=== PATIENT | female | born 1955 | race Caucasian/White ===

== ENCOUNTER → 2017-08-13 | Outpatient (CLI) | payer OTHER ==
--- NOTE | 2017-08-13 15:49 | RAD ---
DATE: 08/13/2017 EXAM: DIGITAL SCREEN BILAT W/CAD HISTORY: Screening COMPARISON: One year earlier This study was interpreted with the benefit of Computerized Aided Detection (CAD). FINDINGS: Breast Density: SCATTERED The breast parenchyma shows scattered fibroglandular densities. Breast parenchyma level B. There has been little change in the appearance of the breasts compared to the previous exam IMPRESSION: Benign findings BI-RADS CATEGORY: 2 BENIGN FINDING(S) RECOMMENDED FOLLOW-UP: 12M 12 MONTH FOLLOW-UP PQRS compliance statement: Patient information was entered into a reminder system with a target due date 08/13/2018 for the next mammogram. Mammography is a sensitive method for finding small breast cancers, but it does not detect them all and is not a substitute for careful clinical examination. A negative mammogram does not negate a clinically suspicious finding and should not result in delay in biopsying a clinically suspicious abnormality. "Our facility is accredited by the [employer] Mammography [employer]."
== END | disposition home or self-care (01) ==
LOC: MAMMO 14:38
PROVIDERS: ATTEND Internal Medicine
DX: Z12.31 Encounter for screening mammogram for malignant neoplasm of breast (principal)
CPT/HCPCS: G0202; 77067

== ENCOUNTER → 2018-08-14 | Outpatient (CLI) | payer MEDICARE, OTHER ==
--- NOTE | 2018-08-15 13:20 | RAD ---
DATE: 08/14/2018 EXAM: MAMMO MARISOL SCREENING BILATERAL HISTORY: Routine screening COMPARISON: 08/13/2017 This study was interpreted with the benefit of Computerized Aided Detection (CAD). Breast Density: SCATTERED The breast parenchyma shows scattered fibroglandular densities. Breast parenchyma level B. FINDINGS: 2-D and 3-D tomosynthesis imaging was performed in CC and MLO projections. No new or enlarging breast densities are seen. Scattered benign type calcifications are present. No suspicious microcalcifications have developed. IMPRESSION: Stable mammograms without evidence of malignancy. BI-RADS CATEGORY: 2 BENIGN FINDING(S) RECOMMENDED FOLLOW-UP: 12M 12 MONTH FOLLOW-UP PQRS compliance statement: Patient information was entered into a reminder system with a target due date for the next mammogram. Mammography is a sensitive method for finding small breast cancers, but it does not detect them all and is not a substitute for careful clinical examination. A negative mammogram does not negate a clinically suspicious finding and should not result in delay in biopsying a clinically suspicious abnormality. "Our facility is accredited by the [employer] Mammography [employer]."
== END | disposition home or self-care (01) ==
LOC: MAMMO 13:51
PROVIDERS: ATTEND Internal Medicine
DX: Z12.31 Encounter for screening mammogram for malignant neoplasm of breast (principal)
CPT/HCPCS: 77063; 77067

== ENCOUNTER → 2019-02-19 | Outpatient (CLI) | payer MEDICARE, OTHER ==
--- NOTE | 2019-02-19 14:59 | RAD ---
DATE: 02/19/2019 EXAM: MAMMO MARISOL PENA RT, BREAST RIGHT HISTORY: Palpable abnormality in the right subareolar region the past one month COMPARISON: 08/13/2017, 08/14/2018, and 08/10/2016 mammographic exams This study was interpreted with the benefit of Computerized Aided Detection (CAD). Breast Density: HETERO The breast parenchyma is heterogenously dense, which could reduce sensitivity of mammography. Breast parenchyma level C. FINDINGS: The right subareolar region is unremarkable with no mass identified and no CVA change Prior exams. No suspicious calcifications or distortion. Ultrasound imaging of the right subareolar region is normal. No cyst, mass, or other suspicious finding. IMPRESSION: No suspicious imaging finding. Correlate clinically in determining further assessment with biopsy versus interval follow-up imaging. BI-RADS CATEGORY: 1 NEGATIVE RECOMMENDED FOLLOW-UP: CLIN FOLLOW UP IMAGING CLINICALLY INDICATED PQRS compliance statement: Patient information was entered into a reminder system with a target due date in 6 months or based on clinical need for the next mammogram. Mammography is a sensitive method for finding small breast cancers, but it does not detect them all and is not a substitute for careful clinical examination. A negative mammogram does not negate a clinically suspicious finding and should not result in delay in biopsying a clinically suspicious abnormality. "Our facility is accredited by the [employer] Mammography [employer]."
== END | disposition home or self-care (01) ==
LOC: MAMMO 12:58
PROVIDERS: ATTEND Internal Medicine
DX: R92.8 Other abnormal and inconclusive findings on diagnostic imaging of breast (principal)
CPT/HCPCS: 76641; 77065; G0279; 77061

== ENCOUNTER → 2019-08-21 | Outpatient (CLI) | payer MEDICARE, OTHER ==
--- NOTE | 2019-08-22 12:51 | RAD ---
DATE: 08/21/2019. EXAM: MAMMO MARISOL SCREENING BILATERAL. HISTORY: Routine mammographic screening. COMPARISON: 08/14/2018. This study was interpreted with the benefit of Computerized Aided Detection (CAD). FINDINGS: Breast Density: HETERO The breast parenchyma is heterogenously dense, which could reduce sensitivity of mammography. Breast parenchyma level C.. Scattered and coarse calcifications are benign. There are no suspicious masses, microcalcifications or architectural distortion. The parenchymal pattern is stable. BI-RADS CATEGORY: 2 BENIGN FINDING(S). RECOMMENDED FOLLOW-UP: 12M 12 MONTH FOLLOW-UP. PQRS compliance statement: Patient information was entered into a reminder system with a target due date 08/21/2020 for the next mammogram. Mammography is a sensitive method for finding small breast cancers, but it does not detect them all and is not a substitute for careful clinical examination. A negative mammogram does not negate a clinically suspicious finding and should not result in delay in biopsying a clinically suspicious abnormality. "Our facility is accredited by the [employer]amm[employer]."
== END | disposition home or self-care (01) ==
LOC: MAMMO 08:53
PROVIDERS: ATTEND Internal Medicine
DX: Z12.31 Encounter for screening mammogram for malignant neoplasm of breast (principal); N64.89 Other specified disorders of breast
CPT/HCPCS: 77063; 77067

== ENCOUNTER 2019-09-28 10:01 | Emergency (ER) | payer MEDICARE, OTHER ==
[~2019-09-28] VITALS: Ht 170.2 cm; Wt 95.2 kg
[2019-09-28 10:05] VITALS: BP 154/99
--- NOTE | 2019-09-28 10:27 | PHYS DOC ---
Past History Past Medical History: Pneumonia Smoking: Non-smoker Alcohol Use: Occasionally Drug Use: None Adult General Chief Complaint Chief Complaint: COUGH HPI HPI Patient is a 64-year-old female presents complaining of a cough for the past 2 months. She has not yet seen her primary care physician for this. It is not productive. She denies any fever. She does get relief with Phenergan with codeine as well as Robitussin. She is concerned because she had pneumonia approximately 10 years ago and had to have a pleurodesis. She denies any shortness of breath. Denies any sputum production. No hemoptysis. She denies nasal congestion. Supine versus upright position does not affect the cough. There is no leg swelling. No recent travel.[] Review of Systems Review of Systems Constitutional: Denies fever or chills [] Eyes: Denies change in visual acuity, redness, or eye pain [] HENT: Denies nasal congestion or sore throat [] Respiratory: See history of present illness[] Cardiovascular: No chest pain or palpitations[] GI: Denies abdominal pain, nausea, vomiting, bloody stools or diarrhea [] : Denies dysuria or hematuria [] Musculoskeletal: Denies back pain or joint pain [] Integument: Denies rash or skin lesions [] Neurologic: Denies headache, focal weakness or sensory changes [] Endocrine: Denies polyuria or polydipsia [] All other systems were reviewed and found to be within normal limits, except as documented in this note. Allergies Allergies Allergies Coded Allergies Type Severity Reaction Last Updated Verified No Known Drug Allergies 09/28/19 No Physical Exam Physical Exam Constitutional: Well developed, well nourished, no acute distress, non-toxic appearance. [] HENT: Normocephalic, atraumatic, bilateral external ears normal, oropharynx moist, no oral exudates, nose normal. [] Eyes: PERRLA, EOMI, conjunctiva normal, no discharge. [] Neck: Normal range of motion, no tenderness, supple, no stridor. [] Cardiovascular:Heart rate regular rhythm, no murmur [] Lungs & Thorax: Bilateral breath sounds clear to auscultation [] Abdomen: Not examined. [] Skin: Warm, dry, no erythema, no rash. [] Back: No tenderness, no CVA tenderness. [] Extremities: No tenderness, no cyanosis, no clubbing, ROM intact, no edema. [] Neurologic: Alert and oriented X 3, normal motor function, normal sensory function, no focal deficits noted. [] Psychologic: Affect normal, judgement normal, mood normal. [] EKG EKG [] Radiology/Procedures Radiology/Procedures PROCEDURE: CHEST PA & LATERAL CHEST PA LATERAL INDICATION: Cough. COMPARISON STUDY: None. FINDINGS: Lungs: Normal lung volume. No pulmonary mass or consolidation. The tracheobronchial tree and hilar structures are normal. Pleura: No pleural effusion or pneumothorax. Heart and Mediastinum: The cardiomediastinal silhouette is normal. Tortuosity of the thoracic aorta. Small hiatal hernia. Bones and Soft Tissues: Degenerative changes of the spine. IMPRESSION: 1. No consolidation. 2. Small hiatal hernia.[] Course & Med Decision Making Course & Med Decision Making Pertinent Labs and Imaging studies reviewed. (See chart for details) Emergency department course: Patient arrived, was placed in bed, and tolerated exam well. She was transported to and from radiology is out any complications. After the return of the imaging results, these were discussed with the patient who voiced understanding. All questions were answered. She was discharged in i mproved condition. Medical decision making: There is no evidence of an infiltrate, no effusion, no pneumothorax. No evidence of hypoxia. No evidence of COPD Dragon Disclaimer Dragon Disclaimer This electronic medical record was generated, in whole or in part, using a voice recognition dictation system. Departure Departure: Impression: Primary Impression: Cough Disposition: HOME, SELF-CARE Condition: IMPROVED Referrals: MARY BURRELL MD (PCP) Follow-up in 2 days Patient Instructions: Cough, Adult Additional Instructions: Drink plenty of fluids. Follow-up with your regular doctor in 2 days. Take the medication as prescribed. Return to the ER if difficulty breathing, blood in sputum, fever of more than 101, or any other concerns. Scripts D-Methorphan Hb/Prometh Hcl (PROMETHAZINE-DM SYRUP) 118 Ml Syrup 5 ML PO PRN Q4HRS for cough, #120 ML Prov: ELIZABETH CHAPPELL DO 09/28/19 Albuterol Sulfate (VENTOLIN HFA INHALER) 18 Gm Hfa.aer.ad 2 PUFF IH PRN Q4HRS PRN for COUGH, #1 INHALER 0 Refills Prov: ELIZABETH CHAPPELL DO 09/28/19 ELIZABETH CHAPPELL DO Sep 28, 2019 10:27
[2019-09-28] MEDS ORDERED: IOHEXOL 240 MG/ML 50ML VIAL. PO ONE (11:00)
[2019-09-28] MEDS ORDERED: IOHEXOL 300 MG/ML 75 ML VIAL. IV ONE (11:00)
--- NOTE | 2019-09-28 11:21 | RAD ---
CHEST PA LATERAL INDICATION: Cough. COMPARISON STUDY: None. FINDINGS: Lungs: Normal lung volume. No pulmonary mass or consolidation. The tracheobronchial tree and hilar structures are normal. Pleura: No pleural effusion or pneumothorax. Heart and Mediastinum: The cardiomediastinal silhouette is normal. Tortuosity of the thoracic aorta. Small hiatal hernia. Bones and Soft Tissues: Degenerative changes of the spine. IMPRESSION: 1. No consolidation. 2. Small hiatal hernia. Electronically signed by: Osmin Muhammad MD (09/28/2019 11:17 AM) [facility]
[2019-09-28] MEDS ORDERED: PROM118S9 PO (11:27)
[2019-09-28] MEDS ORDERED: ALBU2.5V8 IH (11:27)
== END 2019-09-28 11:30 | disposition home or self-care (01) ==
LOC: ER 10:01
DX: R05 Cough (principal)
CPT/HCPCS: 71046; 99284

== ENCOUNTER → 2020-02-24 | Outpatient (CLI) | payer MEDICARE, OTHER ==
[~2020-02-24] MED LIST: ALBU2.5V8 IH; BARIUM SULFATE 60% 355 ML SUSP PO ONE; BARIUM SULFATE 98% 135 ML SUSP PO ONE; PROM118S9 PO
--- NOTE | 2020-02-24 09:48 | RAD ---
CT MAXILLOFACIAL WO CONTRAST History: Sinusitis. Comparison: None. Technique: Noncontrast CT imaging was performed of the sinuses. Coronal and sagittal reconstructions were performed. Exposure: One or more of the following individualized dose reduction techniques were utilized for this examination: 1. Automated exposure control 2. Adjustment of the mA and/or kV according to patient size 3. Use of iterative reconstruction technique. Findings: Patent maxillary, ethmoid, sphenoid and frontal sinuses. Patent infundibulum, frontal ethmoidal recesses and sphenoid ostia. No fluid levels. Nasal septum is midline. Mastoid air cells are clear. Orbits are unremarkable. Imaged intracranial contents are unremarkable. Impression: 1. No significant paranasal sinus disease. Electronically signed by: Justin Galaviz DO (02/24/2020 9:45 AM) [id number]
--- NOTE | 2020-02-24 10:28 | RAD ---
ESOPHOGRAM/BARIUM SWALLOW History: Gastroesophageal reflux disease, sinusitis Comparison: None. Findings: Barium esophagram was performed. There is moderate size sliding hiatal hernia. Within the hernia sac, there is what likely represents a large ulcer arising from the involved cardiac portion of stomach projecting superiorly and to the left, normal gastric folds not clearly identified in the superior portion of the outpouching at which there is wall irregularity present. Adjacent to the larger focus, there is a smaller focus of outpouching which may be a smaller adjacent ulcer. There is no evidence of obstruction. There are a couple of small diverticula of the distal esophagus. There were a few tertiary contractions noted of the esophagus during exam although otherwise effective propulsive esophageal motility. Fluoroscopy time 1.8 minutes 173 images Impression: 1. There is moderate size hiatal hernia. There is a large outpouching concerning for a large ulcer projecting superiorly on the left from the involved cardiac portion of the stomach, likely a smaller adjacent focus. There is wall irregularity of the larger presumed ulcer for which endoscopic evaluation should be considered. There are couple of small diverticula of the distal esophagus. Electronically signed by: Osmin Wilde MD (02/24/2020 10:25 AM) [id number]
== END | disposition home or self-care (01) ==
LOC: RAD 08:40
PROVIDERS: ATTEND Allergy & Immunology
DX: K44.9 Diaphragmatic hernia without obstruction or gangrene (principal); K25.9 Gastric ulcer, unspecified as acute or chronic, without hemorrhage or perforation; K22.5 Diverticulum of esophagus, acquired; J32.9 Chronic sinusitis, unspecified
CPT/HCPCS: 70486; 74220

== ENCOUNTER → 2020-08-23 | Outpatient (CLI) | payer MEDICARE, OTHER ==
[~2020-08-23] MED LIST changes: -BARIUM SULFATE 60% 355 ML SUSP PO ONE; -BARIUM SULFATE 98% 135 ML SUSP PO ONE; +PROM118S10 PO; -PROM118S9 PO
--- NOTE | 2020-08-23 17:03 | RAD ---
BILATERAL SCREENING MAMMOGRAM, 3-D History: Routine screening. Comparison: 08/21/2019, 02/19/2019 right mammographic images, 08/14/2018, 09/13/2017, 08/10/2016.. Technique: MLO and CC digital tomosynthesis (3D) images obtained. Radiologist reviewed these images on dedicated workstation. Findings: Breast Tissue Density B : There are scattered areas of fibroglandular density. There are no dominant masses, suspicious microcalcifications, or architectural distortion. IMPRESSION: No mammographic evidence of malignancy. Recommend routine screening. BI-RADS category 1: Negative. The images were reviewed with computer-aided detection. Patient information is entered into reminder system with a target due date for the next screening mammogram. Mammography is the most sensitive method for finding small breast cancers, but it does not detect them all and is not a substitute for careful clinical examination. A negative mammogram does not negate a clinically suspicious finding and should not result in delay in biopsying a clinically suspicious abnormality. "Our facility is accredited by the [employer] Mammography [employer]." Electronically signed by: Kemal Pettit MD (08/23/2020 5:00 PM) [facility]
== END ==
LOC: MAMMO 13:46
PROVIDERS: ATTEND Internal Medicine
DX: Z12.31 Encounter for screening mammogram for malignant neoplasm of breast (principal)
CPT/HCPCS: 77063; 77067

== ENCOUNTER → 2021-12-19 | Outpatient (CLI) | payer MEDICARE, OTHER ==
--- NOTE | 2021-12-20 13:08 | RAD ---
EXAMINATION: MG BILAT SCREEN+MARISOL CLINICAL HISTORY: Screening mammogram TECHNIQUE: Digital craniocaudal and mediolateral oblique views of the bilateral breasts obtained with 3-D tomosynthesis. COMPARISON: 08/23/2020, 08/21/2019, 02/19/2019, 08/14/2018, 08/13/2017 BREAST COMPOSITION: There are scattered areas of fibroglandular density. FINDINGS: No evidence of suspicious mass, calcifications, or areas of architectural distortion. IMPRESSION: No mammographic evidence of malignancy. BI-RADS ASSESSMENT: Category 1: Negative RECOMMENDATION: Return for routine bilateral screening mammogram in one year. PQRS compliance statement - Patient information was entered into a reminder system with a target due date for the next mammogram. "Our facility is accredited by the [employer]ammography [employer]." Electronically signed by: Rashid Paz DO (12/20/2021 1:06 PM) [id number]
== END ==
LOC: MAMMO 15:08
PROVIDERS: ATTEND Internal Medicine
DX: Z12.31 Encounter for screening mammogram for malignant neoplasm of breast (principal)
CPT/HCPCS: 77063; 77067